=== PATIENT | male | born 1955 | race Two or more races ===

== ENCOUNTER 2025-03-08 21:36 | Emergency (ER) | payer OTHER ==
[~2025-03-08] VITALS: Ht 170.2 cm; Wt 77.1 kg
[2025-03-08] MEDS ORDERED: LEVOTHYROXINE25 MCG PO (21:59)
[2025-03-08] MEDS ORDERED: METHYLPREDNISOLONE SOD SUCC 125 MG VIAL IV STA (23:22)
[2025-03-08] MEDS ORDERED: DIPHENHYDRAMINE HCL 50 MG/ML VIAL 1ML IV STA (23:22)
[2025-03-08] MEDS ORDERED: METHYLPREDNISOLONE SOD SUCC 125 MG VIAL ONE (23:26)
[2025-03-08] MEDS ORDERED: DIPHENHYDRAMINE HCL 50 MG/ML VIAL 1ML ONE (23:26)
[2025-03-09 00:06] LABS: BASO % 0.3 % (0.1-1.2); EOS # 0.01 (0.04-0.54); EOS % 0.1 % (0.7-7.0); LYMPH # 0.69 (1.18-3.74); LYMPH % 9.2 % (19.3-53.1); MEAN PLATELET VOLUME 11.80 fl (9.4-12.4); MONO # 0.26 (0.24-0.82); MONO % 3.4 % (4.7-12.5); NEUT # 6.54 (1.56-6.13); NEUT % 86.7 % (34.0-71.1); RED CELL DISTRIBUTION WIDTH 12.3 % (11.6-14.4)
[2025-03-09 00:26] LABS: BUN CREA RATIO 19.0 (7.0-25.0); CREATININE SERUM 1.1 mg/dL (0.70-1.30); GFR 65.99; GLUCOSE FASTING 144.0 mg/dL (65-100); OSMOLALITY SERUM 287.0 MOSM/KG (275-295)
[2025-03-09] MEDS ORDERED: MECLIZINE HCL25 MG PO (03:45)
== END 2025-03-09 03:53 ==
LOC: ER 21:36
PROVIDERS: General Practice
DX: R42 Dizziness and giddiness (principal); E03.8 Other specified hypothyroidism
CPT/HCPCS: 36415; 93005; 96365; 99282; J1200; J3490